=== PATIENT | male | born 1945 | race Caucasian/White ===

== ENCOUNTER 2020-10-02 11:27 | Emergency (ER) | payer MEDICARE ==
[~2020-10-02] VITALS: Ht 172.7 cm; Wt 83.5 kg
[2020-10-02] MEDS ORDERED: PLAVIX 75 MG TA75 MG PO (11:40)
[2020-10-02] MEDS ORDERED: SIMVASTATIN80 MG PO (11:41)
[2020-10-02] MEDS ORDERED: ZOCOR 10 MG TAB10 MG PO (11:41)
[2020-10-02 12:02] LABS: ABSOLUTE BASOPHILS 0.1 thou/uL (0.0-0.2); ABSOLUTE EOSINOPHILS 0.2 thou/uL (0.0-0.7); ABSOLUTE LYMPHOCYTES 1.7 thou/uL (0.8-5.3); ABSOLUTE MONOCYTES 0.5 thou/uL (0.0-1.2); HEMATOCRIT 46.1 % (42.0-52.0); HEMOGLOBIN 16.4 gm/dL (14.0-18.0); MCH 33.3 pg (26.0-34.0); MCHC 35.6 g/dL (28.0-37.0); MCV 93.6 fL (80.0-100.0); MONOCYTES 7.7 %; MPV 8.3 fl. (7.2-11.1); NUCLEATED RBCS 0 /100WBC; PLATELET COUNT* 140 thou/uL (150-400); POLYS 61.3 %; RBC 4.93 mil/uL (4.50-6.00); RDW-CV 13.5 % (10.5-14.5); WBC 6.5 thou/uL (4.0-11.0)
[2020-10-02 12:23] LABS: CALCIUM 8.9 mg/dL (8.5-10.1); CREATININE 1.5 mg/dL (0.6-1.3); POTASSIUM 4.4 mmol/L (3.5-5.1)
[2020-10-02 12:28] LABS: ALBUMIN 3.9 g/dL (3.4-5.0); TOTAL BILIRUBIN 1.1 mg/dL (<0.1-1.0); TOTAL PROTEIN 7.4 g/dL (6.4-8.2)
[2020-10-02 13:14] VITALS: BP 173/99
--- NOTE | 2020-10-02 16:08 | EKG ---
[place] [address] ELECTROCARDIOGRAM REPORT Name: ABSILIO BERNABE III Room: [facility]#: [id number] Admission: 10/02/20 Attend Phys: Discharge: 10/02/20 Date of : 41 Date of Service: 10/02/20 1143 Report #: [id number] THIS REPORT FOR: //name// [facility] ED Test Date: 2020-10-02 Test Time: 11:43:19 Pat Name: BASILIO BERNABE Department: Room: Gender: Target Network Analyst: : 1945 Requested By: Dominick Wasserman Order Number: [id number] MD: Obey Junior Measurements Intervals [place] Rate: 99 P: 25 HI: 148 QRS: -32 QRSD: 84 T: 61 QT: 361 QTc: 464 Interpretive Statements Sinus rhythm Abnormal R-wave progression, late transition Inferior infarct, old No previous ECG available for comparison Electronically Signed On 10-02-2020 16:08:43 CDT by Obey Junior [email or web address] <ELECTRONICALLY SIGNED> By: Obey Junior MD, FAC 10/02/20 1608 1143 1143 Obey Junior MD, [facility] /EPI
== END 2020-10-02 13:15 | disposition home or self-care (01) ==
LOC: M.ERS 11:27
PROVIDERS: Family Medicine
DX: R53.1 Weakness (principal); R42 Dizziness and giddiness

== ENCOUNTER 2020-10-03 06:49 | Inpatient (IN) | payer MEDICARE ==
[~2020-10-03] VITALS: Ht 172.7 cm; Wt 85.9 kg
[~2020-10-03 06:49] MED LIST: PLAVIX 75 MG TA75 MG PO; SIMVASTATIN80 MG PO; ZOCOR 10 MG TAB10 MG PO
[2020-10-03 07:04] LABS: ABSOLUTE BASOPHILS 0.1 thou/uL (0.0-0.2); ABSOLUTE EOSINOPHILS 0.3 thou/uL (0.0-0.7); ABSOLUTE LYMPHOCYTES 2.1 thou/uL (0.8-5.3); ABSOLUTE MONOCYTES 0.6 thou/uL (0.0-1.2); ABSOLUTE NEUTROPHILS 3.4 thou/uL (1.6-8.1); EOSINOPHILS 4.1 %; HEMATOCRIT 45.9 % (42.0-52.0); HEMOGLOBIN 16.2 gm/dL (14.0-18.0); LYMPHOCYTES 32.6 %; MCHC 35.3 g/dL (28.0-37.0); MCV 93.3 fL (80.0-100.0); MONOCYTES 9.5 %; NUCLEATED RBCS 0 /100WBC; PLATELET COUNT* 132 thou/uL (150-400); POLYS 52.8 %; RBC 4.91 mil/uL (4.50-6.00); RDW-CV 13.3 % (10.5-14.5); WBC 6.4 thou/uL (4.0-11.0)
[2020-10-03 07:14] LABS: CALCIUM 8.6 mg/dL (8.5-10.1); CREATININE 1.4 mg/dL (0.6-1.3); POTASSIUM 3.8 mmol/L (3.5-5.1)
[2020-10-03 07:15] VITALS: BP 200/101
[2020-10-03 07:16] LABS: APTT 24.8 Seconds (25.0-31.3); PROTIME 10.3 Seconds (9.20-11.50)
[2020-10-03 07:18] LABS: ALBUMIN 3.6 g/dL (3.4-5.0); MAGNESIUM 2.2 mg/dL (1.8-2.4); TOTAL BILIRUBIN 0.9 mg/dL (<0.1-1.0)
[2020-10-03 08:26] LABS: URINE BILIRUBIN NEGATIVE (Negative); URINE BLOOD NEGATIVE (Negative); URINE CLARITY CLEAR; URINE COLOR YELLOW; URINE GLUCOSE-RANDOM NEGATIVE (Negative); URINE KETONES NEGATIVE (Negative); URINE LEUKOCYTES-REFLEX NEGATIVE (Negative); URINE NITRITE-REFLEX NEGATIVE (Negative); URINE PROTEIN NEGATIVE (Negative); URINE UROBILINOGEN 0.2 E.U./dl (0.2-1.0)
[2020-10-03 13:06] VITALS: BP 194/103
[2020-10-03 13:27] VITALS: BP 141/110
--- NOTE | 2020-10-03 14:26 | EKG ---
[place] [address] ELECTROCARDIOGRAM REPORT Name: BASILIO BERNABE III Room: [address] ADM IN M.R.#: [id number] Admission: 10/03/20 Attend Phys: Gege Nguyen, Discharge: Date of : 41 Date of Service: 10/03/20720 Report #: [id number] THIS REPORT FOR: //name// [facility] ED Test Date: 2020-10-03 Test Time: 07:21:20 Pat Name: BASILIO BERNABE Department: Room: [facility] Gender: M Physician Gynecologist: LOU : 1945 Requested By: Tracey Stein Order Number: [id number] MD: Joel Akhtar Measurements Intervals [place] Rate: 75 P: 37 CO: 149 QRS: -25 QRSD: 88 T: 99 QT: 438 QTc: 490 Interpretive Statements Sinus arrhythmia Inferior infarct, old Baseline wander in lead(s) V2 Compared to ECG 10/02/2020 11:43:19 Sinus arrhythmia is noted Myocardial infarct finding still present Electronically Signed On 10-03-2020 14:26:06 CDT by Joel Akhtar [email or web address] <ELECTRONICALLY SIGNED> By: Joel Akhtar MD, [facility] 10/03/20 1426 0 0 Joel Akhtar MD, [facility] /EPI
--- NOTE | 2020-10-03 15:26 | 2DMMODE ---
[place] [address] 2 D/M-MODE ECHOCARDIOGRAM Name: BASILIO BERNABE [facility] Room: [address] IN [facility]#: [id number] Admission: 10/03/20 Attend Phys: Gege Nguyen, Discharge: Date of : 41 Date of Service: 10/03/20 1525 Report #: [id number] THIS REPORT FOR: cc: Alba Gutierrez MD, Tuongvan T. MD Holkins, John M. MD [facility] ~ APPROVED REPORT Study performed: 10/03/2020 14:45:42 EXAM: Comprehensive 2D, Doppler, and color-flow Echocardiogram Patient Location: In-Patient Room #: 201 Status: routine BSA: 1.97 HR: 101 bpm BP: 141/110 mmHg Rhythm: NSR Other Information Study Quality: Good Indications CVA/TIA Echo Enhancing Agent Indication: Rule out Shunt Agent(s) / Amount(s) Used: Agitated Saline 10 cc 2D Dimensions IVSd: 17.33 (7-11mm) LVOT Diam: 20.05 (18-24mm) LVDd: 23.82 mm PWd: 12.83 (7-11mm) Ascending Ao: 29.76 (22-36mm) LVDs: 14.32 (25-40mm) Aortic Root: 33.15 mm Volumes Left Atrial Volume (Systole) LA ESV Index: 15.50 mL/m2 Aortic Valve AoV Peak Fransico.: 1.53 m/s AO Peak Gr.: 9.41 mmHg LVOT Max P.66 mmHg AO Mean Gr.: 5.14 mmHg LVOT Mean P.36 [place] [address] 2 D/M-MODE ECHOCARDIOGRAM Name: BASILIO BERNABE III Room: [address] IN ..#: [id number] Admission: 10/03/20 Attend Phys: Gege Nguyen, Discharge: Date of : 41 Date of Service: 10/03/20 1525 Report #: [id number] LVOT Max V: 0.82 m/s AO V2 VTI: 22.01 cm LVOT Mean V: 0.54 m/s DIEGO (VTI): 2.09 cm2 LVOT V1 VTI: 14.58 cm Mitral Valve E/A Ratio: 0.40 MV Decel. Time: 99.45 ms MV E Max Fransico.: 0.46 m/s MV PHT: 28.84 ms MVA (PHT): 7.63 cm2 TDI E/Lateral E': 5.75 E/Medial E': 5.75 Medial E' Fransico.: 0.08 m/s Lateral E' Fransico.: 0.08 m/s Pulmonary Valve PV Peak Fransico.: 1.30 m/s PV Peak Gr.: 6.75 mmHg Tricuspid Valve RAP Estimate: 5.00 mmHg TR Peak Gr.: 23.07 mmHg RVSP: 28.00 mmHg PA Pressure: 28.00 mmHg Left Ventricle The left ventricle is normal size. There is normal LV segmental wall motion. Moderate concentric left ventricular hypertrophy. Left ventricular systolic function is hyperdynamic. LVEF is 70%. Grade I - abnormal relaxation pattern. Right Ventricle The right ventricle is normal size. The right ventricular systolic function is normal. Atria The left atrium size is normal. The interatrial septum is intact with no evidence for an atrial septal defect. The right atrium size is normal. Aortic Valve Mild aortic valve sclerosis. Mild aortic regurgitation. There is no aortic valvular stenosis. Mitral Valve The mitral valve is normal in structure. There is no mitral valve regurgitation noted. No evidence of mitral [place] [address] 2 D/M-MODE ECHOCARDIOGRAM Name: BASILIO BERNABE [facility] Room: [address] IN [facility].#: [id number] Admission: 10/03/20 Attend Phys: Gege Nguyen, Discharge: Date of : 41 Date of Service: 10/03/20 1525 Report #: [id number] Tricuspid Valve The tricuspid valve is normal in structure. Trace tricuspid regurgitation. No pulmonary hypertension. Pulmonic Valve The pulmonary valve is normal in structure. There is no pulmonic valvular regurgitation. Great Vessels The aortic root is normal in size. IVC is normal in size and collapses >50% with inspiration. Pericardium There is no pericardial effusion. <Conclusion> The left ventricle is normal size. Moderate concentric left ventricular hypertrophy. Left ventricular systolic function is hyperdynamic. LVEF is 70%. Grade I - abnormal relaxation pattern. The right ventricle is normal size. The left atrium size is normal. Mild aortic valve sclerosis. Mild aortic regurgitation. There is no aortic valvular stenosis. The mitral valve is normal in structure. The tricuspid valve is normal in structure. Trace tricuspid regurgitation. No pulmonary hypertension. IVC is normal in size and collapses >50% with inspiration. There is no pericardial effusion. There is normal LV segmental wall motion. The interatrial septum is intact with no evidence for an atrial septal defect. <ELECTRONICALLY SIGNED> By: Joel Akhtar MD, [facility] 10/03/20 1525 1525 1525 Joel Akhtar MD, FACC /INF
[2020-10-03 16:28] LABS: ALBUMIN 3.7 g/dL (3.4-5.0); CALCIUM 8.8 mg/dL (8.5-10.1); CREATININE 1.4 mg/dL (0.6-1.3); POTASSIUM 3.8 mmol/L (3.5-5.1); TOTAL BILIRUBIN 0.9 mg/dL (<0.1-1.0); TOTAL PROTEIN 7.4 g/dL (6.4-8.2)
[2020-10-03 19:45] VITALS: BP 173/103
[2020-10-03 23:58] VITALS: BP 149/83
[2020-10-04 04:06] VITALS: BP 152/72
[2020-10-04 06:05] LABS: CALCIUM 8.7 mg/dL (8.5-10.1); CREATININE 1.6 mg/dL (0.6-1.3); POTASSIUM 3.7 mmol/L (3.5-5.1)
[2020-10-04 06:09] LABS: ABSOLUTE BASOPHILS 0.1 thou/uL (0.0-0.2); ABSOLUTE EOSINOPHILS 0.3 thou/uL (0.0-0.7); ABSOLUTE LYMPHOCYTES 2.1 thou/uL (0.8-5.3); ABSOLUTE MONOCYTES 0.7 thou/uL (0.0-1.2); ABSOLUTE NEUTROPHILS 4.4 thou/uL (1.6-8.1); BASOPHILS 0.7 %; EOSINOPHILS 4.3 %; HEMATOCRIT 46.9 % (42.0-52.0); HEMOGLOBIN 16.5 gm/dL (14.0-18.0); LYMPHOCYTES 28.2 %; MCH 32.5 pg (26.0-34.0); MCHC 35.2 g/dL (28.0-37.0); MCV 92.4 fL (80.0-100.0); MONOCYTES 9.3 %; MPV 8.2 fl. (7.2-11.1); NUCLEATED RBCS 0 /100WBC; PLATELET COUNT* 140 thou/uL (150-400); POLYS 57.5 %; RBC 5.07 mil/uL (4.50-6.00); RDW-CV 13.2 % (10.5-14.5); WBC 7.6 thou/uL (4.0-11.0)
[2020-10-04 06:19] LABS: CHOLESTEROL 192 mg/dL (<200); HDL CHOLESTEROL 56 mg/dL (>40); LDL CHOLESTEROL 110 mg/dL (<100); TC:HDL 3.4 Ratio (Not establshd); TRIGLYCERIDE 132 mg/dL (<150); VLDL 26 mg/dL (<40)
[2020-10-04 06:45] LABS: SERUM ASSESSMENT Clear
[2020-10-04 08:23] VITALS: BP 182/92
[2020-10-04 12:00] VITALS: BP 167/97
[2020-10-04 16:00] VITALS: BP 132/76
[2020-10-04 20:35] VITALS: BP 161/91
[2020-10-04 23:41] VITALS: BP 152/93
[2020-10-05 03:51] VITALS: BP 182/84
[2020-10-05 05:36] LABS: GLYCOHEMOGLOBIN (HGB A1C) 5.4 % (4.8-5.6)
[2020-10-05 08:01] VITALS: BP 175/85
[2020-10-05 12:13] VITALS: BP 187/96
[2020-10-05 17:27] VITALS: BP 168/87
--- NOTE | 2020-10-05 19:44 | CON ---
[address] [address] CONSULTATION Name: BASILIO BERNABE III Room: [address] IN M.R.#: [id number] Admission: 10/03/20 Attend Phys: Gege Nguyen MD Discharge: Date of : 41 Report #: [id number] THIS REPORT FOR: cc: Alba Gutierrez MD, Tuongvan T. MD Khosla, Parveen K. MD ~ DATE OF CONSULTATION: 10/03/2020 HISTORY OF PRESENT ILLNESS: This is a 74-year-old male patient who is difficult to evaluate. He said he had a stroke in the past. It affected the left side of the body. I have never seen him before, but there was apparently some residual weakness. He is complaining of multiple symptoms now. He is complaining of some vertigo. He said he had dysarthria. The whole thing becomes difficult. I do not know his baseline and he being a psychologist tends to use some terms, which ultimately becomes confusing. He also had that medical literature and he continued to correlate his symptoms with those medical literature. In any event, the best I understand he is worse than his baseline. He has more symptoms on the left side. I do not know how much more, but the confusing history is that he is also complaining of some generalized weakness. He will ask question if my MRI is negative, then what the next step is. REVIEW OF SYSTEMS: Positive for prior stroke. There has been some question of Parkinson disease, but he has no confirmed diagnosis of understand from the patient and his family that was only raised by Dr. Wasserman in emergency room. He denies any anxiety or depression that was his relevant 14-point review of systems. PAST MEDICAL HISTORY: Positive for prior stroke. He said it was in 2007, he has been taking Plavix since that time, it was on both sides. FAMILY HISTORY: Negative for stroke. SOCIAL HISTORY: He does not smoke or drink any alcohol. PHYSICAL EXAMINATION: His speech is slow. He believes he is dysarthric and that is why it is slow, but he says his memory is at his baseline. His cranial nerve examination demonstrates left-sided facial weakness. He is also weak in the left upper and left lower extremity. He did [id number], but somewhat slowly. His position sense is intact. His reflexes are diminished in generalized fashion. When I asked him to do [id number], he does it but usually on the left side. His GFR is 49 and he did get some contrast in the emergency room, but I do not think that is much different than when he came and in fact may be trace better. PT, OT consult is pending. Cardiac examination is unremarkable. No thyroid mass. No carotid bruit[place] [address] CONSULTATION Name: BERNABEBASILIO Huynh [facility] Room: [address] IN ..#: [id number] Admission: 10/03/20 Attend Phys: Gege Nugyen MD Discharge: Date of : 41 Report #: [id number] LABORATORY DATA: White count is 6.4, GFR is 49. IMPRESSION AND PLAN: Pretty difficult to form in this patient, but I agree because of the prior history of stroke and posterior cerebral artery stenosis, I think we should look for any new stroke in this patient. I then realized that he already had a CT angio of the brain and if something is found in the posterior fossa, then we may have to readdress his question. We will also see how he does with PT/OT. Thank you very much for this referral. They wanted to address the question of Parkinson disease. We will see how he does with the physical therapy, but that need to be addressed as an outpatient. Thank you very much for this referral. <ELECTRONICALLY SIGNED> By: Tra Matamoros MD 10/05/20 1944 1319 [id number] Matamoros MD /nt
[2020-10-05 20:00] VITALS: BP 172/70
[2020-10-05 23:50] VITALS: BP 193/82
[2020-10-06 03:49] VITALS: BP 192/108
[2020-10-06] MEDS ORDERED: LIPITOR 40 MG T40 M1 PO (07:24)
[2020-10-06] MEDS ORDERED: ASPIRIN EC325 M1 PO (07:24)
[2020-10-06 08:00] VITALS: BP 193/104
[2020-10-06 12:15] VITALS: BP 181/81
[2020-10-06 16:23] VITALS: BP 166/87
[2020-10-06 20:00] VITALS: BP 151/91
[2020-10-06 21:06] LABS: ANA INTERPRETATION Negative (())
[2020-10-07] VITALS (7 sets, daily range): BP systolic 162–190; BP diastolic 50–102
[2020-10-08 05:17] VITALS: BP 169/101
[2020-10-08 08:00] VITALS: BP 195/100
[2020-10-08 12:00] VITALS: BP 146/73
[2020-10-08 16:00] VITALS: BP 183/94
[2020-10-08 20:15] VITALS: BP 178/90
[2020-10-09 04:00] VITALS: BP 165/75
[2020-10-09 08:30] VITALS: BP 127/58; BP 178/88
[2020-10-09 12:00] VITALS: BP 180/82
[2020-10-09 16:00] VITALS: BP 148/95
== END 2020-10-09 19:40 | DRG 65 ==
LOC: M.ERS 06:49 → M.TBA-ER 10:53 → M.2W 10:53
PROVIDERS: Internal Medicine; Personal Emergency Response Attendant; Psychiatry & Neurology Neuromuscular Medicine; ADMIT Internal Medicine; ATTEND Internal Medicine
DX: I63.29 Cerebral infarction due to unspecified occlusion or stenosis of other precerebral arteries (principal); N17.9 Acute kidney failure, unspecified; G81.94 Hemiplegia, unspecified affecting left nondominant side; G45.9 Transient cerebral ischemic attack, unspecified; R27.0 Ataxia, unspecified; R47.81 Slurred speech; K59.00 Constipation, unspecified; Z20.822 Contact with and (suspected) exposure to COVID-19; D69.6 Thrombocytopenia, unspecified; R47.1 Dysarthria and anarthria; Z79.82 Long term (current) use of aspirin; Z79.899 Other long term (current) drug therapy; Z91.19 Patient's noncompliance with other medical treatment and regimen; N18.30 Chronic kidney disease, stage 3 unspecified

== ENCOUNTER 2020-10-09 17:58 | Inpatient (IN) | payer MEDICARE ==
[~2020-10-09] VITALS: Ht 172.7 cm; Wt 83.8 kg
[~2020-10-09 17:58] MED LIST changes: +ASPIRIN EC325 M1 PO; +LIPITOR 40 MG T40 M1 PO
[2020-10-09 21:00] VITALS: BP 139/85
[2020-10-10 04:36] LABS: HEMATOCRIT 45.1 % (42.0-52.0); HEMOGLOBIN 15.9 gm/dL (14.0-18.0); MCHC 35.4 g/dL (28.0-37.0); MCV 93.5 fL (80.0-100.0); MPV 8.5 fl. (7.2-11.1); RBC 4.82 mil/uL (4.50-6.00); RDW-CV 12.9 % (10.5-14.5); WBC 8.5 thou/uL (4.0-11.0)
[2020-10-10 05:03] LABS: CALCIUM 8.5 mg/dL (8.5-10.1); CREATININE 1.5 mg/dL (0.6-1.3); POTASSIUM 4.1 mmol/L (3.5-5.1)
--- NOTE | 2020-10-10 05:22 | NUR ---
PT ARRIVED ONTO UNIT BY W/C AT APPROX 1954. ALERT AND ORIENTED X 4. PLEASANT. DENIED ANY PAIN. CVA WITH LEFT SIDE WEAKNESS. SLIGHT SLURRING OF WORDS AT TIMES. HAS SOME MOVEMENT IN LEFT ARM AND LEG. MAX ASSIST X 2 PERSON. STAND AND PIVOT. LEFT HAND SKIN TEAR OCCURED WITH TRANSFER. DRSG PLACED. PT STATES NO BM IN SEVERAL DAYS. MIRALAX GIVEN. USES URINAL. SLEPT WELL. ADMISSION ASSESSMENT COMPLETED AND QUESTIONS ANSWERED. SLEPT WELL. CALL LIGHT IN REACH AND BED ALARM ON.
[2020-10-10 07:49] VITALS: BP 152/91
--- NOTE | 2020-10-10 12:23 | NUR ---
Nutrition: Pt admitted to rehab with Rt CVA. Slurring of words. GISELLE. H/o HTN. 2gm Na diet, eating fine per RN. Albumin 3.7. Wt: 193#. Assessed at low nutrition risk.
--- NOTE | 2020-10-10 18:00 | NUR ---
PT WORKED WITH THERAPIES. UP WITH GAIT BELT AND MAX ASSIST X2. L SIDED SAWYER. DENIES PAIN. DRESSING TO L HAND C/D/I. HERE TO VISIT. CALL LIGHT IN REACH. FALL PRECAUTIONS IN PLACE.
[2020-10-10 20:00] VITALS: BP 148/91
--- NOTE | 2020-10-11 05:17 | NUR ---
ASSUMED CARE AT 1915. PATIENT RESTED IN BED ALL NIGHT, SLEPT SOME, AWAKENS EASILY DURING ROUNDS. VOIDS NATHANAEL URINE PER URINAL. TAKES PILLS WHOLE WITH WATER. NO C/O PAIN. MOISTURE BARRIER APPLIED TO BUTTOCKS. DRESSING TO LT THUMB SKIN TEAR C/D/I. TURNS SELF AND REFUSES ASSIST WITH TURNS. CALL LITE IN REACH. BED ALARM ON. HOURLY ROUNDS.
[2020-10-11 07:30] VITALS: BP 129/65
--- NOTE | 2020-10-11 17:42 | NUR ---
PATIENT COMPLETED THERAPIES THIS SHIFT ORDERED. UP TO CHAIR WITH MAX ASSISTANCE; GAIT BELT AND WALKER. NO COMPLAINTS OF PAIN. PATIENT ASSISTED WITH URINAL AT TIMES. IV SL, DRESSING CHANGED TO SITE. PER PATIENT DAUGHTER PATIENT WEARS A MOUTH GUARD AT NIGHT AND WAS BROUGT TO BEDSIDE. NO BM NOTED THIS SHIFT.
[2020-10-11 20:00] VITALS: BP 165/86
[2020-10-12 07:40] VITALS: BP 149/83
--- NOTE | 2020-10-12 17:18 | NUR ---
PATIENT UP TO CHAIR WITH MAX ASSISTANCE; GAIT BELT AND WALKER. DRESSING TO LEFT HAND CHANGED AND PHOTO TAKEN PER PROTOCOL. VOIDING PER URINAL, NO BM NOTED THIS SHIFT. SET UP FOR MEALS. NO COMPLAINTS OF PAIN. PATIENT ABLE TO LIFT LEFT ARM AND SQUEEZE THIS NURSES HAND. HAND SQUEEZE WAS A LITTLE STRONGER THAN PREVIOUS DAY NOTED.
[2020-10-12 20:24] VITALS: BP 164/86
--- NOTE | 2020-10-13 00:04 | NUR ---
ASSUMED CARE AT 1915. PATIENT RESTING IN BED WATCHING TV. TAKES PILLS WHOLE WITH WATER. TURNS SELF. REFUSES ASSIST. VOIDS PER URINAL, ENCOUARGED PATIENT TO CALL FOR ASSIST DUE TO LUE WEAKNESS. TURNS SELF. DRESSING TO LT THUMB C/D/I. SALINE LOCK TO LT HAND INTACT. APPLIED MOUTH GUARD AFTER TAKING HS MEDS. NO C/O PAIN. HOURLY ROUNDS CONTINUE. BED ALARM ON. CALL LITE IN REACH.
[2020-10-13 05:00] LABS: CALCIUM 8.3 mg/dL (8.5-10.1); CREATININE 1.4 mg/dL (0.6-1.3); MAGNESIUM 2.1 mg/dL (1.8-2.4); POTASSIUM 3.8 mmol/L (3.5-5.1)
--- NOTE | 2020-10-13 06:02 | NUR ---
SLEPT MOST OF THE SHIFT. TOOK MYLANTA FOR GERD. STATES HIS GERD IS POSITIONAL, AND HE DOES NOT WANT PROTON PUMP INHIBITORS BECAUSE OF THE SIDE EFFECTS. VOIDED PER URINAL WITH ASSIST. NO C/O PAIN. HOURLY ROUNDS CONTINUE. CALL LITE IN REACH. BED ALARM ON.
[2020-10-13 08:00] VITALS: BP 148/78
--- NOTE | 2020-10-13 16:20 | NUR ---
INITIAL ASSESSMENT: PATIENT ADMITTED TO THE [facility] ON 10/09/20 WITH A DIAGNOSIS OF RIGHT CVA. PT RESIDES AT HOME WITH SPOUSE. PT NORMALLY DOES NOT USES ANY DME. PT HAS 0 HX OF HH OR SNF. CM ORIENTED PT AND HIS SPOUSE TO THE [facility] AND PROCESSES, RESIDENTS RIGHTS INFO, TEAM CONFRENCE, AND TO THE ROLE OF CM. CM WILL REMAIN AVAILABLE TO ASSIST AND FOLLOW NEEDED.
--- NOTE | 2020-10-13 16:41 | NUR ---
PT WAS UP AND SITTING IN CHAIR, UP WITH MAX ASST AND GAIT BELT. PT HAS DRESSING TO LEFT HAND,IV IN LEFT HAND. NO COMPLAINTS OF PAIN THIS SHIFT, PT DID COMPLETE ALL THERAPIES TODAY. PT STATES HE HAD BM ON 10-12-20, NO BM THIS SHIFT. CALL LIGHT IN REACH AND AND FALL PRECAUTIONS IN PLACE.
[2020-10-13 19:00] VITALS: BP 156/74
--- NOTE | 2020-10-14 05:50 | NUR ---
ASSUMED CARE AT 1920. ALERT AND ORIENTED. PLEASANT. DENIED ANY PAIN. SALINE LOCK D/C'D. USED URINAL. PT REQUESTED BEDPAN FOR BM. SLEPT WELL. CALL LIGHT IN REACH AND BED ALARM ON.
[2020-10-14 07:52] VITALS: BP 170/87
--- NOTE | 2020-10-14 15:58 | NUR ---
Patient with with max asst. using gait belt and walker.Patient completed all therapies today. no complaints of pain. Dressing to left hand was changed 10-13-20 . Patient last bm 10-13-20. Call light in reach and fall precautions in place.
--- NOTE | 2020-10-14 16:09 | NUR ---
CM SPOKE TO THE PT AND HIS SPOUSE TO DISCUSS ANY QUESTIONS OR CONCERNS THAT THEY MAY HAVE FOR THIS WEEKS TEAM CONFRENCE MEETING. PT AND SPOUSE HAVE NO QUESTIONS OR CONCERNS AT THIS TIME.
[2020-10-14 19:00] VITALS: BP 149/79
[2020-10-15 04:47] LABS: HEMATOCRIT 44.7 % (42.0-52.0); HEMOGLOBIN 15.8 gm/dL (14.0-18.0); MCH 32.9 pg (26.0-34.0); MCHC 35.4 g/dL (28.0-37.0); MPV 8.3 fl. (7.2-11.1); RBC 4.81 mil/uL (4.50-6.00); WBC 9.6 thou/uL (4.0-11.0)
--- NOTE | 2020-10-15 04:54 | NUR ---
ASSUMED CARES AT 1920. ALERT AND ORIENTED. PLEASANT. CVA WITH LEFT SIDE WEAKNESS. DENIED ANY PAIN. LEFT HAND SKIN TEAR HEALING AND RATING EXAMINER. USED URINAL AND BED UPTON. REFUSED TO BE REPOSITIONED IN BED. SLEPT WELL. CALL LIGHT IN REACH AND BED ALARM ON.
[2020-10-15 05:12] LABS: CALCIUM 8.6 mg/dL (8.5-10.1); CREATININE 1.4 mg/dL (0.6-1.3); POTASSIUM 3.9 mmol/L (3.5-5.1)
[2020-10-15 07:41] VITALS: BP 156/91
--- NOTE | 2020-10-15 16:01 | NUR ---
TEAM CONFRENCE MEETING HELD TODAY. PLAN FOR THE PT TO REMAIN ON THE UNIT AND CONTINUE THERAPIES FOR ANOTHER WEEK. PT AND SPOUSE INFORMED AND ARE IN AGREEMENT. PT PROGRESSING WELL TOWARDS GOALS, BUT BARRIERS ARE PT INTERRUPTIVE, TANGENTILE, MEMORY, WEAKNESS, DECREASED BALANCE, AND FETIGUE. CM WILL REMAIN AVAILABLE TO ASSIST AND FOLLOW NEEDED.
--- NOTE | 2020-10-15 16:40 | NUR ---
PT UP WITH GAIT BELT, WALKER AND ASSIST X2. HERE TO VISIT. L SIDED SAWYER. CALL LIGHT IN REACH. FALL PRECAUTIONS IN PLACE.
[2020-10-15 20:00] VITALS: BP 166/86
--- NOTE | 2020-10-16 06:29 | NUR ---
ASSUMED CARE AT 1920. ALERT AND ORIENTED. PLEASANT. DENIED ANY PAIN. USED URINAL. REFUSED REPOSITIONING. SLEPT WELL. CALL LIGHT IN REACH AND BED ALARM ON.
[2020-10-16 07:49] VITALS: BP 161/79
--- NOTE | 2020-10-16 11:51 | NUR ---
I have reviewed the documentation by BRUCE MICHAEL from 10/06/20 to 10/10/20 and I concur with it. ARRON BLUM
--- NOTE | 2020-10-16 17:33 | NUR ---
PT UP WITH WALKER, GAIT BELT, AND MAX ASSIST X2. L SAWYER. DENIES PAIN. DAUGHTER HERE TO VISIT. CALL LIGHT IN REACH. FALL PRECAUTIONS IN PLACE.
[2020-10-16 20:00] VITALS: BP 119/71
--- NOTE | 2020-10-17 00:07 | NUR ---
ASSUMED CARE AT 1930. PATIENT RESTING IN BED. TAKES PILLS WHOLE WITH THIN LIQUIDS. LT SAWYER NOTED. VOIDS PER URINAL WITH ASSIST. SPILLED WATER WHILE DRINKING, ASSISTED IN GETTING OFF SHIRT AND DONNING GOWN. SKIN TEAR TO LT HAND RN RELIEF CHARGE, HEALING. PATIENT BRUSHED OWN TEETH AND APPLIED HIS MOUTH GUARD AT HS. CALL LITE IN REACH. BED ALARM ON. HOURLY ROUNDS CONTINUE.
--- NOTE | 2020-10-17 05:31 | NUR ---
SLEPT MOST OF THE NIGHT. VOIDED PER URINAL. NO C/O PAIN. MOVES SELF IN BED. HOURLY ROUNDS CONTINUE. BED ALARM ON. CALL LITE IN REACH.
[2020-10-17 08:00] VITALS: BP 193/86
--- NOTE | 2020-10-17 18:18 | NUR ---
AM ASSESSMENT AND VITAL SIGNS COMPLETED DOCUMENTED. PT WORKED WITH PT, OT AND ST. NO C/O DISCOMFORT THIS SHIFT. PT CONTINUES TO BE A MAX ASSIST OF TWO WITH TRANSFERS. FALL PRECAUTIONS AND HOURLY ROUNDING CONTINUE.
[2020-10-17 20:00] VITALS: BP 156/91
[2020-10-18 08:18] VITALS: BP 140/87
[2020-10-18 12:32] VITALS: BP 149/90
--- NOTE | 2020-10-18 16:26 | NUR ---
PT UP WITH WALKER, GAIT BELT, AND ASSIST X2. DAUGHTER HERE TO VISIT. CALL LIGHT IN REACH. FALL PRECAUTIONS IN PLACE.
[2020-10-18 18:04] VITALS: BP 157/78
[2020-10-18 19:00] VITALS: BP 139/83
[2020-10-19 07:12] VITALS: BP 180/76
[2020-10-19 12:02] VITALS: BP 145/83
--- NOTE | 2020-10-19 16:41 | NUR ---
PT UP WITH WALKER. GAIT BELT, AND ASSIST X1. CALL LIGHT IN REACH. FALL PRECAUTIONS IN PLACE.
[2020-10-19 20:00] VITALS: BP 147/86
[2020-10-20 07:37] VITALS: BP 142/81
--- NOTE | 2020-10-20 15:03 | NUR ---
CM SPOKE TO THE PT AND HIS SPOUSE TO CHECK-IN AND DISCUSS ANY QUESTIONS OR CONCERNS THAT THEY MAY HAVE FOR THIS WEEKS TEAM CONFRENCE MEETING. PT HAS NO QUESTIONS ABOUT THE MEETING, BUT EXPRESSED CONCERN ABOUT BEING ABLE TO 'MOVE TO A DIFFERENT ROOM, BECAUSE THE OAR[employer] NEXT DOOR KEEPS HIS TV UP TOO LOUD AND I DIDNT GET ANY SLEEP LAST NIGHT BECAUSE OF IT'. CM INFORMED INPT HYDRO MECHANIC. CM WILL REMAIN AVAILABLE TO ASSIST AND FOLLOW NEEDED.
[2020-10-20 19:00] VITALS: BP 152/82
--- NOTE | 2020-10-20 23:26 | NUR ---
ASSUMED CARE AT 1915. PATIENT RESTING IN BED. TAKES PILLS WHOLE WITH THIN LIQUIDS. LT SAWYER NOTED. VOIDS PER URINAL SKIN TEAR TO LT HAND EDIS, HEALING. TURNS SELF. NO C/O PAIN. CALL LITE IN REACH. BED ALARM ON. HOURLY ROUNDS CONTINUE.
--- NOTE | 2020-10-21 06:12 | NUR ---
PATIENT STATES THAT HE SLEPT WELL. TURNS SELF. VOIDS PER URINAL. NO C/O PAIN. HOURLY ROUNDS CONTIMUE. BED ALARM OM. CALL LITE IN REACH.
[2020-10-21 07:20] VITALS: BP 138/70
--- NOTE | 2020-10-21 17:12 | NUR ---
PATIENT COMPLETED THERAPIES THIS SHIFT ORDERED. UP WITH MAX ASSISTANCE; GAIT BELT AND WALKER. NO COMPLAINTS OF PAIN. DAUGHTER AT BEDSIDE THIS AFTERNOON. VOIDING PER URINAL. NO BM THIS SHIFT, PATIENT REFUSING OTHER STOOL AGENTS AT THIS TIME. AM LABS AND TEAM MEETING TOMORROW.
[2020-10-21 19:00] VITALS: BP 135/61
[2020-10-22 05:41] LABS: HEMATOCRIT 43.5 % (42.0-52.0); HEMOGLOBIN 15.2 gm/dL (14.0-18.0); MCH 32.5 pg (26.0-34.0); MCHC 34.9 g/dL (28.0-37.0); MCV 93.2 fL (80.0-100.0); MPV 8.6 fl. (7.2-11.1); RBC 4.67 mil/uL (4.50-6.00); RDW-CV 12.8 % (10.5-14.5); WBC 8.3 thou/uL (4.0-11.0)
[2020-10-22 05:46] LABS: CALCIUM 8.6 mg/dL (8.5-10.1); CREATININE 1.3 mg/dL (0.6-1.3); POTASSIUM 3.8 mmol/L (3.5-5.1)
--- NOTE | 2020-10-22 07:00 | NUR ---
ASSUMED PT CARE AT 1930. ASSESSMENT COMPLETED CHARTED. ABLE TO MAKE NEEDS KNOWN. NO C/O PAIN OR DISCOMFORT. RESTING IN BED ALL NIGHT. PT UPSET AT NURSE FOR NOT COMING TO ROOM FAST ENOUGH AND FEELING "FORGOTTEN". WILL CONTINUE TO MONITOR.
[2020-10-22 07:20] VITALS: BP 143/73
--- NOTE | 2020-10-22 16:22 | NUR ---
PATIENT COMPLETED THERAPIES THIS SHIFT ORDERED. UP WITH ASSISTANCE, GAIT BELT AND WALKER. PATIENT GIVEN PRN MOM THIS AM, VERY LARGE BM NOTED THIS AFTERNOON VIA BSC. VOIDING PER URINAL. TEAM MEETING TODAY, RETEAM.
[2020-10-22 19:00] VITALS: BP 134/69
--- NOTE | 2020-10-22 23:00 | NUR ---
ASSUMED CARE AT 1915. PATIENT RESTING IN BED. TURNS SELF. TAKES PILLS WHOLE WITH WATER. VOIDS PER URINAL WITH OUT ASSIST. LT SIDED WEAKNESS NOTED. VOIDS PER URINAL SKIN TEAR TO LT HAND DONATIONS ATTENDANT, HEALING. HOURLY ROUNDS CONTINUE. BED ALARM ON. CALL LITE IN REACH.
--- NOTE | 2020-10-23 05:26 | NUR ---
SLEPT MOST OF THE NIGHT. DID MISS THE URINAL ONCE, AND LINENS CHANGED, SKIN CARE DONE, MOISTURE BARRIER APPLIED. TURNS SELF. NO C/O PAIN. HOURLY ROUNDS CONTINUE. BED ALARM ON. CALL LITE IN REACH.
[2020-10-23 08:10] VITALS: BP 155/77
--- NOTE | 2020-10-23 16:47 | NUR ---
PATIENT COMPLETED THERAPIES THIS SHIFT ORDERED. UP WITH ASSISTANCE; GAIT BELT AND WALKER. VOIDING PER URINAL, NO BM NOTED THIS SHIFT. DAUGHTER AT BEDSIDE THIS AFTERNOON.
[2020-10-23 19:40] VITALS: BP 145/87
[2020-10-24 08:39] VITALS: BP 123/77
--- NOTE | 2020-10-24 16:15 | NUR ---
TEAM CONFRENCE MEETING HELD THIS WEEK. CM INFORMED PT AND SPOUSE OF THE MEETING AND PLAN TO RE-TEAM AND HAVE THE PT REMAIN ON THE UNIT TO CONTINUE THERAPIES FOR ANOTHER WEEK. PT AND SPOUSE IN AGREEMENT. CM WILL REMAIN AVAILABLE TO ASSIST AND FOLLOW NEEDED.
--- NOTE | 2020-10-24 17:17 | NUR ---
PT WORKED WITH THERAPIES. UP WITH WALKER, GAIT BELT, AND ASSIST X1. L HEMIPARISIS. VENOUS US WAS NEG FOR DVT. HERE TO VISIT. CALL LIGHT IN REACH. FALL PRECAUTIONS IN PLACE.
[2020-10-24 19:55] VITALS: BP 130/72
--- NOTE | 2020-10-25 16:46 | NUR ---
PATIENT A&OX4,CALM. LSCTA, HRR, NO COMPLAINTS OF PAIN. LEFT SIDE WEAKNESS FROM CVA. PATIENT UP WITH GAITBELT AND WALKER X1 ASSIST. PATIENT WORKED OT AND SPEECH THERAPY TODAY, TOLERATED WELL. PATIENT HAS NO SKIN BREAKDOWN. GIVEN MILK OF MAGNESIUM FOR CONSTIPATION X3 DAYS. ABLE TO HAVE FORMED BOWEL MOVEMENT TODAY. LAB FROM THIS AM - MAGNESIUM 2.1. NO NEW ORDERS. PATIENT IN BED IN LOWEST LOCKED POSITION WITH CALL LIGHT IN REACH.
[2020-10-25 19:50] VITALS: BP 133/76
--- NOTE | 2020-10-26 04:39 | NUR ---
ASSUMED PT CARE AT 1930. PT ALERT AND ORIENTED X4, POLITE AND COOPERATIVE WITH CARES. PT RESTING IN BED AT SHIFT CHANGE. TAKES PILLS WHOLE WITH WATER. TURNS SELF IN BED. VOIDS PER URINAL. LEFT SIDED WEAKNESS. DENIES PAIN. CALL LIGHT IN REACH, BED ALARM ON FOR SAFETY. HOURLY ROUNDING IN PROGRESS, WILL CONTINUE TO MONITOR.
[2020-10-26 08:00] VITALS: BP 154/82
--- NOTE | 2020-10-26 17:35 | NUR ---
PATIENT A&OX4. HRR. LSCTA. PATIENT'S WEIGHT TODAY 182 PER BED SCALE AFTER BEING ZEROED OUT. PATIENT CURIOUS WHAT HIS BLOOD TYPE IS. THE LAB STATES THE JONATHAN HIS BLOOD BUT HAVE NOT HAD TO RUN A TYPE/SCREEN SO THEY DO NOT HAVE HIS BLOOD TYPE. PATIENT STATES PHYSICAL THERAPY CAME TO WORK WITH HIM AT [facility], BUT STATED SHE NEVER CAME BACK. PATIENT SON VERIFIED INFO. PATIENT AMBULATED TO THE BATHROOM X1 ASSIST, STILL UNSTEADY ON HIS FEET AND DRAGS HIS LEFT LEG, BUT GAINING STRENGTH. PATIENT RESTING IN BED IN LOWEST LOCKED POSITION. CALL LIGHT IN REACH.
--- NOTE | 2020-10-26 17:52 | NUR ---
PATIENT WEIGHT TODAY IS 182. HE STATES HE WEIGHED 184 WHEN HE WAS ADMITTED. WEIGHT RECORD ON DATE OF ADMISSION IS 193. PATIENT STATES THAT IS NOT POSSIBLE.
[2020-10-26 20:06] VITALS: BP 150/77
--- NOTE | 2020-10-27 04:17 | NUR ---
ASSUMED PT CARE AT 1930. PT ALERT AND ORIENTED X4, POLITE AND COOPERATIVE WITH CARES. PT RESTING IN BED AT SHIFT CHNAGE. TAKES PILLS WHOLE WITH WATER. TURNS SELF IN BED. VOIDS PER URINAL. LEFT SIDED WEAKNESS. DENIES PAIN. CALL LIGHT IN REACH, BED ALARM ON FOR SAFETY. HOURLY ROUNDING IN PROGRESS, WILL CONTINUE TO MONITOR.
[2020-10-27 07:30] VITALS: BP 137/78
--- NOTE | 2020-10-27 15:04 | NUR ---
THIS GROUNDS SUPERVISOR AGREES WITH DOCUMENTATION BY SHABBIR BUCKNER FOR THIS DAY. TAWANA SHELDON, ROBERTOT
--- NOTE | 2020-10-27 17:21 | NUR ---
ALERT AND ORIENTED X4. UP WITH 1 ASSIST, GAIT BELT AND WALKER. DENIES NEED FOR PAIN MEDICATION. CONTINENT OF BLADDER. TAKES PILLS WITHOUT DIFFICULTY. USES CALL LIGHT FOR ASSIST. FALL PRECAUTIONS IN PLACE BED ALARM AND CHAIR ALARM USED.
[2020-10-27 19:00] VITALS: BP 130/76
--- NOTE | 2020-10-28 04:24 | NUR ---
ASSUMED PT CARE AT 1930. PT ALERT AND ORIENTED X4, POLITE AND COOPERATIVE WITH CARES. PT RESTING IN BED AT SHIFT CHANGE. TAKES PILLS WHOLE WITH WATER WITHOUT DIFFICULTY. TURNS SELF IN BED. VOIDS PER URINAL. LEFT SIDED WEAKNESS. DENIES PAIN. CALL LIGHT IN REACH, BED ALARM ON FOR SAFETY. HOURLY ROUNDING IN PROGRESS, WILL CONTINUE TO MONITOR.
[2020-10-28 07:30] VITALS: BP 133/82
--- NOTE | 2020-10-28 16:17 | NUR ---
CM SPOKE TO THE PT, SPOUSE, AND SON TO DISCUSS QUESTIONS OR CONCERNS FOR TOMORROWS MEETING. PT HAS NO CONCERNS. PT'S SPOUSE INFORMS THAT SHE IS CONCERNED ABOUT HOW SOON THE PT WILL BE RELEASED AND WHAT ASSISTANCE HE WILL NEED AT D/C. CM WILL REMAIN AVAILABLE TO ASSIST AND FOLLOW NEEDED.
--- NOTE | 2020-10-28 16:45 | NUR ---
ALERT AND ORIENTED X4. UP WITH 1 ASSIST, GAIT BELT AND WALKER. DENIES NEED FOR PAIN MEDICATION. TAKES PILLS WHOLE WITHOUT DIFFICULTY. CONTINENT OF BOWEL AND BLADDER. USES CALL LIGHT FOR ASSIST. FALL PRECAUTIONS IN PLACE, BED AND CHAIR ALARM USED.
[2020-10-28 19:00] VITALS: BP 137/73
--- NOTE | 2020-10-28 23:34 | NUR ---
ASSUMED CARE AT 1915. PATIENT RESTING IN BED. TURNS SELF. TAKES PILLS WHOLE WITH WATER. VOIDS PER URINAL WITH OUT ASSIST. LT SIDED WEAKNESS NOTED. VOIDS PER URINAL. SKIN TEAR TO LT HAND GREY ROLL WORKER, HEALING. DOOR CLOSED PER REQUEST. HOURLY ROUNDS CONTINUE. BED ALARM ON. CALL LITE IN REACH.
[2020-10-29 05:38] LABS: HEMATOCRIT 44.4 % (42.0-52.0); HEMOGLOBIN 15.7 gm/dL (14.0-18.0); MCH 32.7 pg (26.0-34.0); MCHC 35.2 g/dL (28.0-37.0); MCV 92.7 fL (80.0-100.0); MPV 8.6 fl. (7.2-11.1); RBC 4.79 mil/uL (4.50-6.00); RDW-CV 12.7 % (10.5-14.5); WBC 7.3 thou/uL (4.0-11.0)
--- NOTE | 2020-10-29 05:39 | NUR ---
RESTED IN BED ALL SHIFT, BUT AWAKENED DURING ROUNDS. VOIDS PER URINAL. NO C/O PAIN. HOURLY ROUNDS CONTINUE. BED ALARM ON. CALL LITE IN REACH.
[2020-10-29 05:54] LABS: CALCIUM 8.6 mg/dL (8.5-10.1); CREATININE 1.5 mg/dL (0.6-1.3); POTASSIUM 3.8 mmol/L (3.5-5.1)
[2020-10-29 08:00] VITALS: BP 122/77
--- NOTE | 2020-10-29 16:04 | NUR ---
PT UP WITH GAIT BELT AND ASST X1 . PT COMPLETED ALL THERAPIES AND NO COMPLAINTS OF PAIN. AT BEDSIDE, PT RESTING WITH CALL LIGHT IN REACH AND FALL PRECAUTIONS IN PLACE.
[2020-10-29 19:55] VITALS: BP 129/69
--- NOTE | 2020-10-30 04:25 | NUR ---
ASSUMED PT CARE AT 1930. PT ALERT AND ORIENTED X4, POLITE AND COOPERATIVE WITH CARES. PT UP TO BATHROOM WITH ASSIST OF 2, GAIT BELT AND WALKER. STOOL X1. PT HAS WEAKNESS ON LEFT SIDE. TAKES PILLS WHOLE WITH WATER. TURNS SELF IN BED. VOIDED PER URINAL. SKIN TEAR TO LEFT HAND EDIS, HEALING. DENIES PAIN. DOOR CLOSED PER PT REQUEST. PT SLEPT WELL OVERNIGHT. CALL LIGHT IN REACH, BED ALARM ON FOR SAFETY. HOURLY ROUNDING IN PROGRESS, WILL CONTINUE TO MONITOR.
[2020-10-30 08:03] VITALS: BP 146/65
--- NOTE | 2020-10-30 16:11 | NUR ---
PT UP WITH GAIT BELT AND WALKER ASST X2 . COMPLETED ALL THERAPY . AT BEDSIDE, NO COMPLAINTS OF PAIN. CALL LIGHT IN REACH AND FALL PRECAUTIONS IN PLACE.
[2020-10-30 19:54] VITALS: BP 141/74
--- NOTE | 2020-10-31 04:51 | NUR ---
ASSUMED PT CARE AT 1930. PT ALERT AND ORIENTED X4, POLITE AND COOPERATIVE WITH CARES. LEFT SIDE WEAKNESS. TAKES PILLS WHOLE WITH WATER. VOIDED PER URINAL. DENIES PAIN. DOOR CLOSED PER PT REQUEST. PT SLEPT WELL OVERNIGHT. CALL LIGHT IN REACH, BED ALARM ON FOR SAFETY. HOURLY ROUNDING IN PROGRESS, WILL CONTINUE TO MONITOR.
[2020-10-31 08:02] VITALS: BP 150/81
--- NOTE | 2020-10-31 15:15 | NUR ---
THIS CONTACT LENS TECHNICIAN IS IN AGREEMENT WITH DOCUMENTATION BY SHABBIR BUCKNER FOR THIS DAY. ROBERTO COKERT
--- NOTE | 2020-10-31 16:48 | NUR ---
PT UP WITH GAIT BELT AND WALKER, PT COMPLETED ALL THERAPIES. DAUGHTER AT BEDSIDE, CALL LIGHT IN REACH AND FALL PRECAUTION IN PLACE.
[2020-10-31 19:55] VITALS: BP 137/66
--- NOTE | 2020-11-01 00:20 | NUR ---
ASSUMED CARE AT 1920. PATIENT RESTING IN BED. TAKES PILLS WHOLE WITH THIN LIQUIDS. TURNS SELF. NO C/O PAIN. VOIDS PER URINAL. DOOR CLOSED PER REQUEST. HOURLY ROUNDS CONTINUE. BED ALARM ON. CALL LITE IN REACH.
--- NOTE | 2020-11-01 06:03 | NUR ---
RESTED IN BED THROUGH THE NIGHT. TURNS SELF. NO C/O PAIN. VOIDS PER URINAL. HOURLY ROUNDS CONTINUE. BED ALARM ON. CALL LITE IN REACH.
[2020-11-01 08:00] VITALS: BP 139/72
[2020-11-01 19:00] VITALS: BP 142/77
--- NOTE | 2020-11-02 05:43 | NUR ---
ASSUMED CARE AT 1920. ALERT AND ORIENTED. PLEASANT. DENIED ANY NEED FOR PAIN MEDS. LEFT SIDE WEAKNESS. MOD ASSIST WITH GAIT BELT AND WALKER. UP TO BATHROOM. USED URINAL. SLEPT MOST OF THE NIGHT. CALL LIGHT IN REACH AND BED ALARM ON.
[2020-11-02 07:30] VITALS: BP 141/72
--- NOTE | 2020-11-02 17:15 | NUR ---
PATIENT REFUSED TO GET UP TO CHAIR THIS SHIFT, REMINDED TO TURN IN BED Q2. NO COMPLAINTS THIS SHIFT. VOIDING PER URINAL. GOOD APPETITE.
[2020-11-02 20:00] VITALS: BP 141/61
--- NOTE | 2020-11-03 05:39 | NUR ---
ASSUMED CARE AT 1920. ALERT AND ORIENTED. PLEASANT. DENIED ANY PAIN. LEFT SIDE WEAKNESS. USED URINAL. SLEPT MOST OF THE NIGHT. CALL LIGHT IN REACH AND BED ALARM ON.
[2020-11-03 07:20] VITALS: BP 141/74
--- NOTE | 2020-11-03 15:01 | NUR ---
THIS WING SCORER IS IN AGREEMENT WITH DOCUMENTATION BY SHABBIR BUCKNER FOR THIS DAY. ROBERTO COKERT
--- NOTE | 2020-11-03 17:07 | NUR ---
PATIENT COMPLETED THERAPIES THIS SHIFT ORDERED. UP WITH ASSISTANCE; GAIT BELT AND WALKER. VOIDING PER TOILET AND URINAL, BM NOTED THIS SHIFT. AT BEDSIDE THIS AFTERNOON.
[2020-11-03 20:00] VITALS: BP 140/89
--- NOTE | 2020-11-04 06:14 | NUR ---
ASSUMED CARES AT 1920. ALERT AND ORIENTED. PLEASANT. DENIED ANY PAIN. USED URINAL. SLEPT WELL. NO ISSUES OVERNIGHT. CALL LIGHT IN REACH AND BED ALARM ON.
[2020-11-04 07:51] VITALS: BP 144/74
--- NOTE | 2020-11-04 15:13 | NUR ---
THIS SAP MOBILITY ARCHITECT AGREES WITH DOCUMENTATION BY SHABBIR BUCKNER FOR THIS DAY. TAWANA SHELDON, ROBERTOT
[2020-11-04 19:00] VITALS: BP 138/70
--- NOTE | 2020-11-05 05:01 | NUR ---
ASSUMED PT CARE AT 1920. PT ALERT AND ORIENTED X4, POLITE AND COOPERATIVE WITH CARES. PT SITTING UP IN RECLINER AT SHIFT CHANGE. TO BED WITH ASSIST OF ONE, GAIT BELT AND WALKER. LEFT SIDED WEAKNESS. PT VOIDED PER URINAL OVERNIGHT. DENIES PAIN. CALL LIGHT IN REACH, BED ALARM ON FOR SAFETY. HOURLY ROUNDING IN PROGRESS, WILL CONTINUE TO MONITOR.
[2020-11-05 05:13] LABS: CALCIUM 8.6 mg/dL (8.5-10.1); CREATININE 1.4 mg/dL (0.6-1.3); POTASSIUM 3.8 mmol/L (3.5-5.1)
[2020-11-05 05:24] LABS: HEMATOCRIT 44.4 % (42.0-52.0); HEMOGLOBIN 15.1 gm/dL (14.0-18.0); MCH 31.8 pg (26.0-34.0); MCV 93.3 fL (80.0-100.0); MPV 8.3 fl. (7.2-11.1); RBC 4.76 mil/uL (4.50-6.00); WBC 7.9 thou/uL (4.0-11.0)
[2020-11-05 07:50] VITALS: BP 134/83
--- NOTE | 2020-11-05 16:46 | NUR ---
AM ASSESSMENT AND VITAL SIGNS COMPLETED DOCUMENTED. PT PARTICIPATED WITH THERAPIES AND TOLERATED WELL. PT DENIES PAIN OR DISCOMFORT. PT IS MIN TO MOD ASSIST WITH TRANSFERS AND AMBULATION. FALL PRECAUTIONS AND HOURLY ROUNDING CONTINUE.
--- NOTE | 2020-11-05 17:12 | NUR ---
[employer]AM [employer] MEETING HELD TODAY. CM AND PHYSICIAN SPOKE TO THE PT, SON AND DTR TO DISCUSS MEETING AND PLAN TO RE-TEAM (PENDING INSURANCE). PT PROGRESSING WELL TOWARDS GOALS. PT'S SPOUSE DECLINES SNF IF NEEDED AT D/C AND INFORMS THAT SHE WILL ONLY HAVE THE PT RETURN HOME WITH HH AT D/C. CM WILL REMAIN AVAILABLE TO ASSIST AND FOLLOW NEEDED.
[2020-11-05 19:00] VITALS: BP 133/78
--- NOTE | 2020-11-06 04:18 | NUR ---
ASSUMED PT CARE AT 1930. PT ALERT AND ORIENTED X4, POLITE AND COOPERATIVE WITH CARES. PT SITTING IN RECLINER AT SHIFT CHANGE, UP WITH MOD ASSIST, GAIT BELT AND WALKER TO BATHROOM. STOOL X1. VOIDS PER URINAL OVERNIGHT. DENIES PAIN. CALL LIGHT IN REACH, BED ALARM ON FOR SAFETY. HOURLY ROUNDING IN PROGRESS, WILL CONTINUE TO MONITOR.
[2020-11-06 08:00] VITALS: BP 138/76
[2020-11-06 20:00] VITALS: BP 150/66
--- NOTE | 2020-11-07 01:12 | NUR ---
ASSUMED CARE AT 1920. PATIENT RESTING IN BED. TAKES PILLS WHOLE WITH THIN LIQUIDS. TURNS SELF. NO C/O PAIN. VOIDS NATHANAEL URINE PER URINAL. DOOR CLOSED PER REQUEST. HOURLY ROUNDS CONTINUE. BED ALARM ON. CALL LITE IN REACH.
--- NOTE | 2020-11-07 05:46 | NUR ---
APPEARED SLEEPING MOST OF THE NIGHT. NO C/O PAIN. TURNS SELF. HOURLY ROUNDS CONTINUE. BED ALARM ON. CALL LITE IN REACH.
[2020-11-07 07:45] VITALS: BP 135/85
--- NOTE | 2020-11-07 17:22 | NUR ---
ALERT AND ORIENTED X4. UP WITH 1 ASSIST, GAIT BELT AND WALKER. NO C/O PAIN. TAKES PILLS WITHOUT DIFFICULTY. HAS LEFT SIDED WEAKNESS. USES CALL LIGHT FOR ASSIST. CONTINENT OF BOWEL AND BLADDER. FALL PRECAUTIONS IN PLACE, BED ALARM AND CHAIR ALARM USED.
[2020-11-07 19:50] VITALS: BP 153/79
[2020-11-08 07:50] VITALS: BP 162/84
[2020-11-08 20:00] VITALS: BP 139/82
--- NOTE | 2020-11-09 04:23 | NUR ---
ASSUMED PT CARE AT 1930. PT ALERT AND ORIENTED X4, POLITE AND COOPERATIVE WITH CARES. DENIES PAIN. LEFT SIDED WEAKNESS. CONTINENT OF BOWEL AND BLADDER. USED URINAL OVERNIGHT. CALL LIGHT IN REACH, BED ALARM ON FOR SAFETY. HOURLY ROUNDING IN PROGRESS, WILL CONTINUE TO MONITOR.
[2020-11-09 07:47] VITALS: BP 144/77
[2020-11-09 19:58] VITALS: BP 132/76
--- NOTE | 2020-11-10 04:52 | NUR ---
ASSUMED PT CARE AT 1930. PT ALERT AND ORIENTED X4, POLITE AND COOPERATIVE WITH CARES. DENIES PAIN. LEFT SIDED WEAKNESS. CONTINENT OF BOWEL AND BLADDER. USED URINAL OVERNIGHT. SLEPT WELL. CALL LIGHT IN REACH, BED ALARM ON FOR SAFETY. HOURLY ROUNDING IN PROGRESS, WILL CONTINUE TO MONIOR.
[2020-11-10 08:00] VITALS: BP 136/80
--- NOTE | 2020-11-10 15:32 | NUR ---
AM ASSESSMENT AND VITAL SIGNS COMPLETED DOCUMENTED. PT WORKED WITH PT, OT AND ST, TOLERATED WELL. PT IS STANDBY TO MIN ASSIST WITH ALL ACTIVITIES. NO C/O PAIN OR DISCOMFORT THIS SHIFT. FALL PRECAUTIONS AND HOURLY ROUNDING CONTINUE.
[2020-11-10 19:00] VITALS: BP 140/76
--- NOTE | 2020-11-11 04:43 | NUR ---
ASSUMED PT CARE AT 1930. PT ALERT AND ORIENTED X4, POLITE AND COOPERATIVE WITH CARES. DENIES PAIN. LEFT SIDED WEAKNESS. USED URINAL OVERNIGHT. NO STOOL THIS SHIFT. LEFT SIDED WEAKNESS. ANTICIPATING DISCHARGE HOME ON TUESDAY. CALL LIGHT IN REACH, BED ALARM ON FOR SAFETY. HOURLY ROUNDING IN PROGRESS, WILL CONTINUE TO MONITOR.
--- NOTE | 2020-11-11 06:46 | NUR ---
ASSUMED CARE OF PATIENT AT 0100. AGREE WITH PRIOR NURSE ASSESSMENT EXCEPT CHARTED. ALERT AND ORIENTED WITH PERIODS OF CONFUSION. LUNG SOUNDS COARSE IN BASES AND DIMINISHED. BAILEY CATHETER ONLY DRAINED OUT APROXIMATELY 100ML SLIGHTLY CLOUDY YELLOW DRAINAGE AND MESSAGE SENT TO UNSURE IF LEAKING AROUND CATHETER SINCE PAD WAS CHANGED WHERE RECTAL TUBE WAS LEAKING. LIQUID STOOL NOTED FROM RECTAL TUBE. REMAINS ON HEART MONITOR. ON NONREBREATHER THAT PATIENT HAS TO REMINDED FREQUENTLY TO KEEP ON. TPN RUNNING AT 80ML/HR WIHTOUT DIFFICULTY. TURNED EVERY 2 HOURS. DRESSING CHANGED ON THIGH. PRESSURE AREA ON HEELS KEEP ON BED.
[2020-11-11 07:40] VITALS: BP 148/72
--- NOTE | 2020-11-11 09:08 | NUR ---
[facility], [facility], INFORMED THIS CM, [id number] OCCURRED YESTERDAY AND [employer] DENIED. PT, PT'S AND DTR, KAMILAH, WHO WAS AT BEDSIDE, NOTIFIED AND EDU ON DENIAL PROCESS. PT DECIDED TO GO HOME WITH HOME HEALTH. PT HAS NO HH PREFERENCE. CM FAXED REFERRAL TO [facility]. [phone]. LAMIN Gaffney/[facility] INDICATED THEY ARE ACCEPTING OF PT. D/C ORDERS WILL NEED TO BE FAXED TO [facility]. PT QULAIFIES FOR WALKER, PER [facility] WITH [employer]. CM FAXED ORDER TO [facility] AT [phone]. ALSO PLACED A COPY OF ORDER IN PT'S CHART. CM TEXT MIMA, DIRECTOR OF THERAPY TO HAVE WALKER BROUGHT TO PT'S ROOM. CM INFORMED PT [facility] WILL CONTACT HIM AT HOME TO ARRANGE VISITS.
[2020-11-11 09:14] VITALS: BP 148/72
--- NOTE | 2020-11-11 18:07 | NUR ---
PATIENT COMPLETED THERAPIES THIS SHIFT ORDERED. UP WITH ASSISTANCE; GAIT BELT AND WALKER. VOIDING PER URINAL, NO BM NOTED THIS SHIFT. PATIENT REQUESTING ANOTHER ADMISSION PACKET, OBTAINED AND GIVEN TO PATIENT. PATIENT TO DISCHARGE HOME TOMORROW. LABS IN AM AND TEAM MEETING TOMORROW.
[2020-11-11 19:00] VITALS: BP 127/70
--- NOTE | 2020-11-12 05:59 | NUR ---
ASSUMED CARES AT 1920. ALERT AND ORIENTED. DENIED ANY PAIN. MIN ASSIST WITH GAIT BELT AND WALKER. UP TO BATHROOM. USED URINAL OTHERWISE. PT REFUSED TO HAVE LABS DRAWN THIS MORNING. SAYS THAT WILL BE DISCHARGING TODAY AND DOES NOT NEED THESE DONE. LABS WERE CANCELLED PER PT REQUEST. CALL LIGHT IN REACH AND BED ALARM ON.
[2020-11-12 07:20] VITALS: BP 148/70
[2020-11-12 08:10] VITALS: BP 148/70
[2020-11-12] MEDS ORDERED: NORVASC 2.5 MG2.5 MG PO (13:25)
--- NOTE | 2020-11-12 14:38 | NUR ---
PATIENT DISCHARGED AT THIS TIME TO HOME WITH SPOUSE AND DAUGHTER. VERBALIZED UNDERSTANDING OF PAPERWORK, SCRIPT SENT OVER FOR BP MEDICATION. COMPLETED THERAPIES. PATENT TAKEN OUT VIA WHEELCHAIR WITH ALL BELONGINGS.
--- NOTE | 2020-11-12 15:46 | NUR ---
Case and plan of care reviewed with MD each weekday during patient's length of stay. Plan of care is for discharge today. HH arranged with [facility] notified CM 11/11 pt accepted. Will fax discharge orders once completed by
--- NOTE | 2020-11-13 14:46 | NUR ---
ESTEBAN CONFIRME WITH LAMIN AT [facility] THAT DC ORDERS WERE RECEIVED.
== END 2020-11-12 14:39 | disposition home health service (06) | DRG 56 ==
LOC: M.REH 17:58
PROVIDERS: Internal Medicine; ADMIT Physical Medicine & Rehabilitation; ATTEND Physical Medicine & Rehabilitation
DX: I69.354 Hemiplegia and hemiparesis following cerebral infarction affecting left non-dominant side (principal); I63.9 Cerebral infarction, unspecified; N17.9 Acute kidney failure, unspecified; D69.6 Thrombocytopenia, unspecified; R27.0 Ataxia, unspecified; R47.1 Dysarthria and anarthria; K59.00 Constipation, unspecified; I10 Essential (primary) hypertension; Z87.891 Personal history of nicotine dependence; Z79.82 Long term (current) use of aspirin; Z79.899 Other long term (current) drug therapy